=== PATIENT | female | born 1990 | race Caucasian/White ===

== ENCOUNTER 2019-03-12 07:33 | Inpatient (IN) ==
[2019-03-12] MEDS ORDERED: LACTATED RINGER'S 1,000 ML IV PRN (08:40)
[2019-03-12] MEDS ORDERED: OXYTOCIN 30 UNITS/500 ML BAG IV PRN ×2 (08:40→11:46)
--- NOTE | 2019-03-12 09:06 | History & Physical Report ---
Date of Service March 12, 2019 Assessment & Plan (1) 40 weeks gestation of : Spontaneous labor. Admit to L&D, IV access, labs, EFM/toco. Does not plan on epidural, but is possibly open to this. Anticipate . History of Present Illness Chief Complaint: Spontaneous labor Primary Care Provider: MARTI PCP 29yo @ 40 0/7 presents with spontaneous labor. Rupture of membranes for clear fluid occurred at approx 0130 this morning. Contractions followed. + movement, no vaginal bleeding. uncomplicated. Rh+/RI/GBSneg. Allergies Allergy/AdvReac Type Severity Reaction Status Date / Time No Known Allergies Unverified 09/29/09 20:24 Home Medications Home Medications Medication Instructions Recorded Confirmed Type Control Pills 1 tab PO DAILY #0 09/29/09 History Multivitamin 1 tab PO DAILY #0 tab 10/24/12 History Naproxen (Aleve) 220 mg PO PRN #0 tab 10/24/12 History Patient History Social History Preferred Language: Syriac Beliefs That Will Affect Care: None marital status: Current Living Situation: Spouse Other Information That Helps Us Care for You: No Feels Safe at Home: Yes Safety Concerns: Feels Safe At This Time Smoking Status: Never smoker Hx Alcohol Use: No Hx Substance Use: No Physical Exam Physical Exam: Gen: AAox3 NAD CV: RRR L: CTAB Abd: soft, gravid, NTTP Ext: no edema SVE: /-1, grossly ruptured FHT Cat 1 [place] irreg Results & Data Vital Signs (Past 12 Hours) Vital Signs Temp Pulse Resp BP 03/12/19 07:52 37.2 C 71 20 142/85 H
[2019-03-12 09:22] LABS: Hematocrit (blood only) 34.4 % (37-47); Hemoglobin 11.8 g/dL (12.0-16.0); Mean Corpuscular Volume 90.1 fL (80-100); Platelet Count 158 K/uL (130-400); RDW Coefficient of Variation 13.3 % (11.5-14.5); RDW Standard Deviation 43.2 fL (36.4-46.3); Red Blood Count 3.82 M/uL (4.2-5.4); White Blood Count 11.03 K/uL (4.8-10.8)
[2019-03-12 09:30] LABS: Mean Corpuscular Hgb Conc 34.3 g/dL (32-36)
[2019-03-12] MEDS ORDERED: BUPIVACAINE 0.25% 30 ML VIAL ONE (09:58)
[2019-03-12] MEDS ORDERED: fentaNYL citrate 100 MCG/2 ML VIAL ONE (09:58)
[2019-03-12] MEDS ORDERED: ePHEDrine sulfate 50 MG/ML AMP ONE (09:58)
[2019-03-12] MEDS ORDERED: fentaNYL 2MCG/ML ROPIV 1.25MG/ML 100 ML BAG EPI ONE (09:59)
[2019-03-12] MEDS ORDERED: BENZOCAINE 20% AER SPR 82.5 GM CAN EXT PRN (11:46)
[2019-03-12] MEDS ORDERED: DIPHTHERIA/TETANUS/PERTUSSIS 0.5 ML SYR/VIAL IM ONE (11:46)
[2019-03-12] MEDS ORDERED: ACETAMINOPHEN 325 MG TAB PO PRN (11:46)
[2019-03-12] MEDS ORDERED: OXYCODONE/ACETAMINOPHEN 5mg/325mg TAB PO PRN (11:46)
[2019-03-12] MEDS ORDERED: BISACODYL 10 MG SUPP PR PRN (11:46)
[2019-03-12] MEDS ORDERED: HYDROCORTISONE ACETATE 25 MG SUPP PR PRN (11:46)
[2019-03-12] MEDS ORDERED: SUPERCREAM 0.870% 15 GM JAR EXT PRN (11:46)
--- NOTE | 2019-03-12 13:30 | Procedure Note ---
Vaginal Delivery Summary Date of Service March 12, 2019 Vaginal Delivery Summary Vaginal Delivery Summary: Pre-delivery diagnoses: 29-year-old G1, P0 at 40 weeks 0 days, spontaneous labor Post-delivery diagnoses: Same Procedure: Spontaneous vaginal delivery Surgeon: Dr. Joselito Whittington Complications: none Findings: Viable male . Apgars: 9/9. Weight pending, please see nursery records Estimated blood loss: 300 mL Description of delivery: I was performing a delivery of a different patient, and this patient felt the urge to push. Dr. Whittington was on labor and delivery, and assisted by being present for delivery. Please see his notes for details of delivery of baby, as I entered the room just following delivery. After delivery of placenta, the uterus and vagina were swept of clots and debris. IV pitocin was given. The uterus became firm. The cervix, vagina, and perineum were inspected and a first-degree perineal and bilateral vaginal sulcal lacerations were noted. These were hemostatic, and patient did not elect for repair. Excellent hemostasis was observed. The mother and baby are recovering in stable and good condition in the room. Sponge and instrument counts were correct x 2. DO DENIA Abarca
[2019-03-12] MEDS: IBUPROFEN 600 MG TAB PO PRN (21:24)
[2019-03-12] MEDS: DOCUSATE SODIUM 100 MG CAP PO SCH (21:24)
--- NOTE | 2019-03-12 21:30 | Delivery Summary ---
DATE OF OPERATION: 03/12/2019 DELIVERY NOTE The patient delivered a live male in left occiput anterior presentation. There was no nuchal cord. Infant was delivered. Cord was clamped and cut after 1 minute. Cord blood was obtained. Placenta spontaneously delivered. Inspection of the placenta shows a normal gross looking placenta with a 3-vessel cord. Estimated blood loss is less than 5 mL. Infant and mother are stable. Inspection of the perineum showed a left lateral labial laceration which will be repaired with 0 Vicryl. There is good hemostasis. All instruments were removed from the vagina and accounted for x2. Baby and mother are doing well in recovery. I attest to the content of the Intraoperative Record and any orders documented therein. Any exception s are noted below.
[2019-03-13 06:43] LABS: Hematocrit (blood only) 30.2 % (37-47); Hemoglobin 10.2 g/dL (12.0-16.0); Mean Corpuscular Hgb Conc 33.8 g/dL (32-36); Mean Corpuscular Volume 90.7 fL (80-100); Mean Platelet Volume 10.7 fL (7.4-10.4); Platelet Count 141 K/uL (130-400); RDW Coefficient of Variation 13.3 % (11.5-14.5); RDW Standard Deviation 43.8 fL (36.4-46.3); Red Blood Count 3.33 M/uL (4.2-5.4); White Blood Count 10.26 K/uL (4.8-10.8)
--- NOTE | 2019-03-13 06:55 | Obstetrical Progress Note ---
Date of Service March 13, 2019 Assessment & Plan (1) Vaginal delivery: PPD#1 doing well. Continue routine care. Anticipate DC home tomorrow. Subjective Ambulation: ambulating normally Voiding: no voiding problems Diet Tolerance:: regular diet Lochia:: Moderate Feeding Type:: breast feeding Physical Exam Constitutional WD/WN, vitals as above no acute distress Respiratory normal respiratory effort Cardiovascular Rate/Rhythm: regular rhythm and + bradycardic Gastrointestinal (Abdomen) Inspection/Auscultation: abdomen normal to inspection; abdomen not distended Percussion/Palpation: abdomen soft Genitourinary OB Exam Abdomen: + fundal height Fundus: + firm; not tender Results & Data Vital Signs (Past 12 Hours) Vital Signs Temp Pulse Pulse Resp BP Pulse Ox 03/13/19 04:15 36.7 C 51 L 18 134/74 100 03/12/19 23:30 36.7 C 56 L 18 120/69 98 03/12/19 19:50 37.0 C 72 20 132/76
[2019-03-13] MEDS: DOCUSATE SODIUM 100 MG CAP PO SCH ×2 (07:57→20:44)
[2019-03-13] MEDS: IBUPROFEN 600 MG TAB PO PRN ×2 (07:58→23:58)
[2019-03-13] MEDS: PRENATAL VITAMIN 1 TAB PO SCH (07:58)
[2019-03-13] MEDS ORDERED: BISACODYL 5 MG TABEC PO SCH (20:00)
[2019-03-14] MEDS: PRENATAL VITAMIN 1 TAB PO SCH (07:31)
[2019-03-14] MEDS: DOCUSATE SODIUM 100 MG CAP PO SCH (07:31)
--- NOTE | 2019-03-14 07:32 | Obstetrical Progress Note ---
Date of Service March 14, 2019 Assessment & Plan (1) Vaginal delivery: stable, ready for d/c home, f/u 6 wks, instructions reviewed. Day #:: 2 Subjective Ambulation: ambulating normally Voiding: no voiding problems Diet Tolerance:: regular diet Lochia:: Small Feeding Type:: breast feeding denies pain issues Physical Exam Constitutional WD/WN, vitals as above Respiratory normal respiratory effort, lungs clear to auscultation Cardiovascular Rate/Rhythm: regular rate and regular rhythm Gastrointestinal (Abdomen) Inspection/Auscultation: abdomen normal to inspection Percussion/Palpation: abdomen soft fundus firm 2 cm below umbilicus Musculoskeletal nt calves Psychiatric A+Ox3, euthymic affect Results & Data Vital Signs (Past 12 Hours) Vital Signs Temp Pulse Resp BP 03/13/19 23:55 36.8 C 52 L 20 131/81 03/13/19 20:30 37.0 C 85 20 130/80
[2019-03-14 07:45] LABS: Hematocrit (blood only) 32.8 % (37-47); Hemoglobin 10.6 g/dL (12.0-16.0)
[2019-03-14] MEDS: IBUPROFEN 600 MG TAB PO PRN (09:29)
== END 2019-03-14 09:50 | disposition home or self-care (01) | DRG 807 ==
LOC: OPB 07:33 → 4S1 07:36 → 4S2 15:07

== ENCOUNTER 2021-05-02 23:27 | Inpatient (IN) ==
[2021-05-02] MEDS ORDERED: LACTATED RINGER'S 1,000 ML IV PRN (23:56)
[2021-05-02] MEDS ORDERED: PENICILLIN G POTASSIUM 3 MU in DEXTROSE 5% 100 ML IV PRN (23:56)
[2021-05-02] MEDS ORDERED: OXYTOCIN 30 UNITS/500 ML BAG IV PRN (23:56)
[2021-05-02] MEDS ORDERED: PENICILLIN G POTASSIUM 6 MU in DEXTROSE 5% 250 ML IV STA (23:56)
--- NOTE | 2021-05-03 00:03 | History & Physical Report ---
Date of Service May 02, 2021 Assessment & Plan (1) Active labor at term: (2) Group beta Strep positive: Plan: admit, iv, labs. covid test. start pcn for gbs. epidural on demand. fhts overally reassuring. History of Present Illness Chief Complaint: regular ctx Primary Care Provider: NO PCP 31yo at 40+wks ega presents to L&D with above cc. Strong ctx since 9pm. No rom, no vb. +FM. was 4cm in office and gbs positive. pnc c/b 1. GBS pos pnl rhpos, RI, Gbs pos obh: x 1 gynh: nl paps no stds Allergies Allergy/AdvReac Type Severity Reaction Status Date / Time doxycycline Allergy Rash Verified 05/02/21 23:35 Home Medications Medication Instructions Recorded Confirmed Type prenat.vits,la,iem-pfbs-assox 1 tab PO DAILY 09/15/20 05/02/21 History breast pump #1 ea 04/12/21 05/02/21 Rx Patient History Medical History History of varicella Surgical History History of wisdom tooth extraction Family History Grandmother (Paternal) No problems noted. Mother No problems noted. Grandmother (Maternal) No problems noted. Social History (Updated 09/15/20 @ 13:47 by Myrna Clarke RN) Smoking Status: Never smoker Hx Alcohol Use: No Hx Substance Use: No Preferred Language: Turkmen Beliefs That Will Affect Care: None marital status: marital status details: Robert (35) [phone] Current Living Situation: Spouse Current Living Situation Comment: lives with spouse and son, dog, 2 cats. Spouse to change litter current occupational status: employed current occupation: hair [employer] Feels Safe at Home: Yes Assistive Devices: None Review of Systems as per Subjective / HPI Physical Exam Constitutional: WD/WN, vitals as above Genitourinary: Manual OB Exam: + cervical dilation (per nurse) 4 cm OB Exam Monitor Tracing: + external FHT monitor used, + external uterine monitor used (q2), + category II, + normal FHT variability and + variable decelerations occas variable only 15min of tracing thus far Results & Data ([facility]) Vital Signs (Past 12 Hours) Vital Signs Pulse BP 05/02/21 23:43 68 138/80 05/02/21 23:33 79 145/87 H Coding Level of Care Code None Diagnoses Active labor at term Group beta Strep positive B95.1
[2021-05-03 00:17] LABS: Hematocrit (blood only) 33.6 % (37-47); Hemoglobin 11.6 g/dL (12.0-16.0); Mean Corpuscular Hemoglobin 30.7 pg (25-34); Mean Corpuscular Hgb Conc 34.5 g/dL (32-36); Mean Corpuscular Volume 88.9 fL (80-100); Mean Platelet Volume 11.1 fL (7.4-10.4); Platelet Count 146 K/uL (130-400); RDW Coefficient of Variation 13.3 % (11.5-14.5); RDW Standard Deviation 43.1 fL (36.4-46.3); Red Blood Count 3.78 M/uL (4.2-5.4); White Blood Count 8.52 K/uL (4.8-10.8)
[2021-05-03] MEDS ORDERED: OXYTOCIN 30 UNITS/500 ML BAG IV PRN (01:00)
[2021-05-03] MEDS ORDERED: ACETAMINOPHEN 325 MG TAB PO PRN (01:00)
[2021-05-03] MEDS ORDERED: oxyCODONE/ACETAMINOPHEN 5mg/325mg TAB PO PRN (01:00)
[2021-05-03] MEDS ORDERED: OXYTOCIN 20 UNITS in LACTATED RINGER'S 1,000 ML IV SCH (01:00)
--- NOTE | 2021-05-03 01:03 | Delivery Summary ---
Vaginal Delivery Summary Date of Service May 03, 2021 Vaginal Delivery Summary The patient dilated to complete and pushed to deliver a viable male Apgars 8 and 9 via over intact perineum. Shoulders and body rapidly delivered through body cord due to maternal continued expulsive efforts. was vigorous and crying at . Cord clamped at 30 seconds of life and infant to maternal abdomen where the cord was then doubly clamped and cut. Placenta delivered spontaneously and intact, three-vessel cord. Hemostasis achieved with dilute pitocin and uterine massage. Cervix and sulci intact. EBL 300 cc. Mother and baby stable recovery. [facility] [place]aginal Delivery Charge Vaginal Delivery Codes: 50537 global code for the antepartum, delivery, and post- Delivery Type Details:
[2021-05-03] MEDS: IBUPROFEN 600 MG TAB PO PRN ×4 (02:08→20:07)
[2021-05-03] MEDS ORDERED: BENZOCAINE 20% AER SPR 82.5 GM CAN EXT ONE (07:13)
[2021-05-03] MEDS ORDERED: SUPERCREAM 0.870% 15 GM JAR EXT PRN (08:49)
[2021-05-03] MEDS ORDERED: BENZOCAINE 20% AER SPR 82.5 GM CAN EXT PRN (08:49)
[2021-05-03] MEDS ORDERED: HYDROCORTISONE ACETATE 25 MG SUPP PR PRN (08:49)
[2021-05-03] MEDS: DOCUSATE SODIUM 100 MG CAP PO SCH (20:07)
--- NOTE | 2021-05-04 06:44 | Obstetrical Progress Note ---
Date of Service <Ted Polanco MD - Last Filed: 05/04/21 07:51> May 04, 2021 Assessment & Plan <Ted Polanco MD - Last Filed: 05/04/21 07:51> (1) Vaginal delivery: 31 yo now PPD1 from at 40 wks -Discharge to home today -Vitals reviewed- HDS, afebrile -Blood type A+, GBS +, Rubella immune -Encourage ambulation -Pain control with Motrin, Tylenol PRN -Regular diet -Monitor lochia -Encourage -Hgb 11.6, asymptomatic -F/u in 6 weeks with OB <Radha Garcia MD, FACOG - Last Filed: 05/04/21 07:55> (1) Vaginal delivery: Subjective <Ted Polanco MD - Last Filed: 05/04/21 07:51> Ambulation: ambulating normally Voiding: no voiding problems Passing Gas:: Yes Diet Tolerance:: regular diet Lochia:: Small Feeding Type:: breast feeding Current Pain Level(1-10): 0 Pt doing well, no acute events or complaints. Has not passed BM yet. Would like to go home today. Review of Systems Denies fevers, chills, dyspnea, chest pain, breast pain, dysuria, headache. Physical Exam <Ted Polanco MD - Last Filed: 05/04/21 07:51> General: Alert, oriented, no acute distress Cardiac: Regular rate and rhythm, normal S1, S2. No murmurs appreciated. Respiratory: Clear to auscultation b/l with good air flow entry, symmetric chest rise and fall. No wheezes or crackles. No increased work of breathing or accessory muscle use Abdomen: Soft, nontender. Fundus firm and palpable at 2 cm below umbilicus. No guarding or rebound. Skin: No rashes or lesions Extremities: Warm, dry, well-perfused with capillary refill <2s b/l. No lower extremity edema, erythema or swelling. Negative Ida's sign b/l. Results & Data ([facility]) <Ted Polanco MD - Last Filed: 05/04/21 07:51> Vital Signs (Past 12 Hours) Vital Signs Temp Pulse Resp BP Pulse Ox 05/03/21 23:35 36.3 C L 64 16 134/74 98 05/03/21 20:00 36.9 C 75 16 133/75 100 <Radha Garcia MD, FACOG - Last Filed: 05/04/21 07:55> Co-Signing Physician Notes Resident Physician Supervision Note: I interviewed and examined the patient. Discussed with Dr. Polanco and agree with findings and plan as documented in the note. Any exceptions or clarifications are listed here: Doing well. Instructions given for d/c. F/u in 6 weeks. Call with concerns. Documented By: Radha Garcia MD, FACOG Resident Activity Tracking <Ted Polanco MD - Last Filed: 05/04/21 07:51> Resident Involvement: Resident Care Provided Care Provided: OB Delivery
[2021-05-04] MEDS ORDERED: PRENATAL VITAMIN 1 TAB PO SCH (08:00)
[2021-05-04] MEDS: IBUPROFEN 600 MG TAB PO PRN (08:41)
[2021-05-04] MEDS: DOCUSATE SODIUM 100 MG CAP PO SCH (08:41)
== END 2021-05-04 14:55 | disposition home or self-care (01) | DRG 807 ==
LOC: OPB 23:27 → 4S1 23:28 → 4S2 05-03 03:30